=== PATIENT | female | born 1965 | race Caucasian/White ===

== ENCOUNTER 2017-07-03 08:15 | Day surgery (SDC) | payer OTHER ==
[~2017-07-03] VITALS: Ht 152.4 cm; Wt 88.7 kg
[2017-07-03 09:36] VITALS: Ht 152.4 cm; Wt 88.7 kg
[2017-07-03] MEDS ORDERED: LISI-313 PO (09:43)
[2017-07-03] MEDS ORDERED: FER325 PO (09:45)
[2017-07-03] MEDS ORDERED: ATOR40TA68 PO (09:45)
[2017-07-03] MEDS ORDERED: OMEP40CA6 PO (09:45)
[2017-07-03] MEDS ORDERED: BIRTH CONTROL (09:45)
[2017-07-03 10:10] VITALS: BP 133/70; PULSE 101; RESP 12
[2017-07-03] MEDS ORDERED: PROPOFOL 20 ML ONE (10:13)
[2017-07-03] MEDS ORDERED: MIDAZOLAM 1 MG/ML 2 ML INJ ONE (10:13)
[2017-07-03] MEDS ORDERED: FENTAnyl 50 MCG/ML VIAL ONE ×2 (10:13→10:31)
--- NOTE | 2017-07-03 10:50 | OPPN ---
Date/Time of Note Date/Time of Note DATE: 07/03/17 TIME: 10:49 Operative Report Preoperative Diagnosis Screening Postoperative Diagnosis Internal hemorrhoids No colon neoplasm was identified Operation/Procedure Performed Colonoscopy Surgeon see signature line hospital medical assistant None Anesthesia: MAC Estimated blood loss: none Transfusion Required none Specimen None Grafts/Implants none Complications none IRAIS MICHEL MD Jul 03, 2017 10:50
[2017-07-03 11:25] VITALS: BP 104/59; PULSE 80; RESP 18
--- NOTE | 2017-07-04 04:18 | GILP ---
DATE OF PROCEDURE: 07/03/2017 NAME OF PROCEDURE: Colonoscopy. SURGEON: Irais Lemons MD PREOPERATIVE DIAGNOSIS: Screening colonoscopy. POSTOPERATIVE DIAGNOSES 1. Colonoscopy all the way to the cecum. 2. Internal hemorrhoids. 3. No colon neoplasm was identified. INDICATION FOR THE PROCEDURE: Ms. Yoly Caba is a 51-year-old female patient who was noted to hernandez ve iron deficiency anemia. She never had screening colonoscopy. The procedure and possible complications are well explained to the patient, she understood and conse nted to the procedure. DESCRIPTION OF PROCEDURE: Under the influence of anesthesia, the colonoscope was carefully introduc ed in the rectum and under direct vision, it was advanced all the way to the cecum. FINDINGS: The patient had internal hemorrhoids. No colon neoplasm was identified. She tolerated the procedure very well and there was no complication from the procedure. At the end of the procedures, she was awake with stable vital signs and she was discharged home to the care of her family. IMPRESSION: Please see postoperative diagnoses. PLAN: Next screening colonoscopy in 10 years. Dictated By: IRAIS MORALES/PEÑA Conf#: [id number] DID#: [id number]
== END 2017-07-03 16:33 | disposition home or self-care (01) ==
LOC: GIL 08:15
PROVIDERS: ATTEND Internal Medicine Gastroenterology
DX: Z12.11 Encounter for screening for malignant neoplasm of colon (principal); K64.8 Other hemorrhoids; E11.9 Type 2 diabetes mellitus without complications; I10 Essential (primary) hypertension
CPT/HCPCS: 45378; 82962; 84703; J2250; J3010